=== PATIENT | female | born 1945 | race Hispanic/Latino ===

== ENCOUNTER → 2023-12-21 | Outpatient (CLI) | payer OTHER ==
[~2023-12-21] MED LIST: ALEN70TA80 PO; LISI10TA24 PO
--- NOTE | 2023-12-21 18:37 | HMCSR ---
APPROVED REPORT EXAM: Two-dimensional and M-mode echocardiogram with Doppler and color Doppler. INDICATION ICD: Premature ventricular complexes I49.3 2D Dimensions RVDd3.3 cmLVEF(%)49.7 (>50%)LVED Vol(simp.)63.2 mL IVSd1.2 (0.7-1.1cm)FS(%)25 %LVES Vol(simp.)16.0 mL LVDd4.4 (3.8-5.6cm)LA (2D)3.6 (1.6-4.0cm)LVEF(%, simp.)75 % PWd1.1 (0.7-1.1cm)Ao Root(2D)3.0 (2.0-3.7cm)LA ESV INDEX (4CH)20.50 mL/m2 IVSs1.6 cmLVOT diam2.0 (1.8-2.4cm)LA ESV INDEX (2CH)23.70 mL/m2 LVDs3.3 (2.5-4.0cm)LA ESV INDEX (BP)21.40 mL/m2 PWs1.6 cm M-Mode Dimensions EPSS1.0 cm LA (MM)3.6 (1.6-4.0cm) Ao Root(MM)3.0 (2.0-3.7cm) Aortic Valve AoV VTI0.3 mAo Mean GR4.0 mmHgLVOT VTI0.22 m BALBIR (VMAX)2.0 cm2Al P1/2T509 msAVA (VTI) 2.0 cm2 Mitral Valve MV E Jyvn968.3 cm/sDECEL Jefo864 ms MV A Kjqc574.9 cm/sP 1/2 T79 ms E/A ratio0.9MVA (PHT)2.8 cm2 MR Max PG96 mmHg TDI E/E' Pctfuf69.5E/E' Mrsubtv59.3 Medial E' Peak V7.20 cm/sLateral E' Peak V6.40 cm/s Tricuspid Valve TR Vmax2.2 m/s TR Peak GR18.6 mmHg Left Ventricle The left ventricle is normal size. There is normal LV segmental wall motion. There is normal left nicole tricular wall thickness. LVEF is >70%. The left ventricular diastolic function is normal. Right Ventricle The right ventricle is normal size. The right ventricular systolic function is normal. Atria The left atrium size is normal. The right atrium size is normal. Aortic Valve The aortic valve is normal in structure. No aortic regurgitation is present. There is no aortic valvu lar stenosis. Mitral Valve The mitral valve is normal in structure. There is no evidence of significant mitral regurgitation. Th ere is no mitral valve stenosis. Tricuspid Valve The tricuspid valve is normal in structure. There is no tricuspid valve regurgitation noted. Pulmonic Valve The pulmonary valve is normal in structure. There is no pulmonic valvular regurgitation. Great Vessels The aortic root is normal in size. The IVC is normal in size and collapses >50% with inspiration. Pericardium There is no pericardial effusion. Conclusion LVEF is >70%.
== END | disposition home or self-care (01) ==
LOC: RAH 14:55
PROVIDERS: ATTEND Family Medicine
DX: I49.3 Ventricular premature depolarization (principal)
CPT/HCPCS: 93306